=== PATIENT | male | born 1935 | race African-American/Black ===

== ENCOUNTER 2019-08-22 12:34 | Emergency (ER) | payer MEDICARE, BC ==
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
== END 2019-08-22 14:16 | disposition home or self-care (01) ==
LOC: NAV ERS 12:34
DX: S00.01XA Abrasion of scalp, initial encounter (principal); E78.5 Hyperlipidemia, unspecified; E78.00 Pure hypercholesterolemia, unspecified; G40.909 Epilepsy, unspecified, not intractable, without status epilepticus; I10 Essential (primary) hypertension; Z79.82 Long term (current) use of aspirin; Z79.899 Other long term (current) drug therapy; V49.50XA Passenger injured in collision with unspecified motor vehicles in traffic accident, initial encounter
CPT/HCPCS: 70450; 72125